=== PATIENT | male | born 1945 | race Caucasian/White ===

== ENCOUNTER 2016-11-20 06:59 | Outpatient (CLI) | payer MEDICARE, OTHER ==
[~2016-11-20] VITALS: Ht 167.6 cm; Wt 70.3 kg
[2016-11-20] VITALS (10 sets, daily range): BP systolic 116–161; BP diastolic 59–73
[2016-11-20 07:30] LABS: BASO % 0 % (0-3); EOS % 1 % (0-3); HEMATOCRIT 25.4 % (39.0-53.0); HEMOGLOBIN 8.3 g/dL (13.0-17.5); LYMPH # 0.3 x10^3/uL (1.0-4.8); LYMPH % 7 % (24-48); MEAN CORPUSCULAR HEMOGLOBIN 36 pg (25-35); MEAN CORPUSCULAR HGB CONC 33 g/dL (31-37); MEAN CORPUSCULAR VOLUME 111 fL (79-100); MONO % 10 % (0-9); NEUT % 83 % (31-73); PLATELET COUNT 149 x10^3/uL (140-400); RED BLOOD COUNT 2.28 x10^6/uL (4.30-5.70); RED CELL DISTRIBUTION WIDTH 16.2 % (11.5-14.5)
[2016-11-20] MEDS ORDERED: AMLO10TA2 PO (07:40)
[2016-11-20] MEDS ORDERED: TACR0.5C2 PO (07:40)
[2016-11-20] MEDS ORDERED: ACYC200C PO (07:40)
[2016-11-20] MEDS ORDERED: MV,C1TAB27 PO (07:40)
[2016-11-20] MEDS ORDERED: AZAT50TA PO (07:40)
[2016-11-20] MEDS ORDERED: AZIT500T PO (07:40)
[2016-11-20] MEDS ORDERED: LEVO100T5 PO (07:40)
[2016-11-20] MEDS ORDERED: CARV6.252 PO (07:40)
[2016-11-20] MEDS ORDERED: PANT40TA5 PO (07:40)
[2016-11-20] MEDS ORDERED: TRAZ50TA15 PO (07:40)
[2016-11-20] MEDS ORDERED: ATOR20TA58 PO (07:40)
[2016-11-20] MEDS ORDERED: BENA20TA2 PO (07:40)
[2016-11-20] MEDS ORDERED: FLUO40CA2 PO (07:40)
[2016-11-20] MEDS ORDERED: CALC1TAB75 PO (07:40)
[2016-11-20] MEDS ORDERED: SULF1TAB3 PO (07:40)
[2016-11-20] MEDS ORDERED: CLON1TAB3 PO (07:40)
[2016-11-20] MEDS ORDERED: ASPI81TA2 PO (07:40)
[2016-11-20] MEDS ORDERED: TORS10TA3 PO (07:40)
[2016-11-20] MEDS ORDERED: TERA2CAP3 PO (07:40)
[2016-11-20] MEDS ORDERED: PRED-220 PO (07:40)
[2016-11-20 07:55] LABS: INR 0.9 (0.8-1.1); PROTHROMBIN TIME PATIENT 11.4 SEC (11.7-14.0)
[2016-11-20] MEDS ORDERED: LIDOCAINE 1% / SOD BICARB 8.4% 20 ML VIAL. IJ ONE ×2 (08:02→09:00)
[2016-11-20] MEDS ORDERED: MIDAZOLAM HCL/PF 5 MG/5 ML VIAL. ONE (08:39)
[2016-11-20] MEDS ORDERED: FENTANYL PF 250 MCG/5 ML VIAL. ONE (08:39)
[2016-11-20] MEDS ORDERED: MIDAZOLAM HCL/PF 5 MG/5 ML VIAL. IV ONE (09:00)
[2016-11-20] MEDS ORDERED: FENTANYL PF 250 MCG/5 ML VIAL. IV ONE (09:00)
--- NOTE | 2016-11-20 09:18 | PDOC ---
MODERATE SEDATION ASSESSMENT RISKS/ALTERNATIVES Risks/Alternatives Risks and alternatives of this type of sedation and procedure discussed with: RISK/ALTERNATIVES: Patient H & P ON CHART H & P H & P on chart and reviewed for co-morbid conditions and appropriate labs. H&P ON CHART: Yes STATUS PREG STATUS ASSESSED: N/A MEDS/ALLERGIES REVIEWED Meds/Allergies Reviewed Medications and Allergies including time and route of recently administered narcotics and sedatives. MEDS/ALLERGIES REVIEWED: Yes ASA RATING ASA RATING: II AIRWAY ASSESSMENT Airway Assessment Airway patency, oral function limitations, presence of caps, crowns, dentures, partials, and ability to extend neck assessed. AIRWAY ASSESSMENT: Yes MALLAMPATI SCORE MALLAMPATI SCORE: II PRE-SEDATION ASSESSMENT PRE-SEDATION ASSESSMENT: Yes RYAN BOLAÑOS MD Nov 20, 2016 09:18
--- NOTE | 2016-11-20 09:22 | PDOC1 ---
History and Physical Date of Procedure Date of Admission 11/20/[address] guided bone marrow asp/bx Indication Indication 71 YO male with MDS, anemia, and elevated free light chains---CT guided bone marrow asp/bx requested by heme-onc. Past Medical History Past Medical History See Nursing Pre procedure PMH Past Surgical History Past Surgical History See Nursing Pre Procedure PSH Current Medications Current Medications Current Medications Lidocaine/Sodium Bicarbonate (Buffered Lidocaine 1%) 20 ml STK-MED ONCE IJ ; Start 11/20/16 at 08:02; Stop 11/20/16 at 08:03; Status DC Midazolam HCl (Versed) 5 mg STK-MED ONCE .ROUTE ; Start 11/20/16 at 08:39; Stop 11/20/16 at 08:40; Status DC Fentanyl Citrate (Fentanyl 5ml Vial) 250 mcg STK-MED ONCE .ROUTE ; Start at 08:39; Stop 11/20/16 at 08:40; Status DC Lidocaine/Sodium Bicarbonate (Buffered Lidocaine 1%) 20 ml 1X ONCE IJ Last administered on 11/20/16 09:07; Start 11/20/16 at 09:00; Stop 11/20/16 at 09:01 ; Status DC Midazolam HCl (Versed) 5 mg 1X ONCE IV Last administered on 11/20/16 09:08; Start 11/20/16 at 09:00; Stop 11/20/16 at 09:01; Status DC Fentanyl Citrate (Fentanyl 5ml Vial) 250 mcg 1X ONCE IV Last administered on 09:08; Start 11/20/16 at 09:00; Stop 11/20/16 at 09:01; Status DC Active Scripts Active Reported Complete Multi Tablet (Mv,Ca,Min/Iron Fum/Fa/Lyco/Lut) 1 Each Tablet 1 Each PO DAILY Calcium 600 + Vit D 200 Tablet (Calcium Carbonate/Vitamin D3) 1 Each Tablet 2 Each PO DAILY Aspirin 81 Mg Tab.chew 1 Tab PO HS Sulfamethoxazole-Tmp Ds Tablet (Sulfamethoxazole/Trimethoprim) 1 Each Tablet 1 Tab PO 3X/WEEK pt takes M-- Trazodone Hcl 50 Mg Tablet 1 Tab PO QHS Terazosin Hcl 2 Mg Capsule 1 Cap PO QHS Tacrolimus 0.5 Mg Capsule 0.5 Mg PO BID Prednisone 10 Mg Tablet 10 Mg PO DAILY Pantoprazole Sodium 40 Mg Tablet.dr 1 Tab PO DAILY Levothyroxine Sodium 100 Mcg Tablet 1 Tab PO DAILY Torsemide 10 Mg Tablet 10 Mg PO DAILY Fluoxetine Hcl 40 Mg Capsule 1 Cap PO DAILYWBKFT Carvedilol 6.25 Mg Tablet 1 Tab PO BID Clonazepam 1 Mg Tablet 1 Tab PO QHS Benazepril Hcl 20 Mg Tablet 1 Tab PO DAILY Zithromax (Azithromycin) 500 Mg Tablet 1 Tab PO 3X/WEEK takes on -- Azathioprine 50 Mg Tablet 3 PO HS Atorvastatin Calcium 20 Mg Tablet 1 Tab PO DAILY Amlodipine Besylate 10 Mg Tablet 10 Mg PO DAILY Acyclovir 200 Mg Capsule 1 Cap PO BID Allergies Allergies: Coded Allergies: rosuvastatin (Verified Adverse Reaction, Intermediate, severe joint pain, 11/20/16) Physical Exam Vital Signs Vital Signs Date Time Temp Pulse Resp B/P Pulse Ox O2 Delivery O2 Flow Rate FiO2 11/20/16 09:08 11 99 Nasal Cannula 2.0 11/20/16 09:05 60 11/20/16 08:05 149/73 11/20/16 08:02 98.0 98.0 Lungs: Clear to auscultation Heart: Regular rate Psych/Mental Status: Mental status NL Assessment Assessment 71 YO male with anemia, MDS, elevated free light chains. Problems: Plan Plan CT guided bone marrow asp/bx, as requested by heme-onc. RYAN BOLAÑOS MD Nov 20, 2016 09:22
--- NOTE | 2016-11-20 09:25 | PDOC ---
Exam Meter Reader Chief Meter Reader Chief Sonam Pre-Procedure Diagnosis Pre-Procedure Diagnosis 71 YO male with MDS, anemia, and elevated free light chains Post-Procedure Diagnosis Post-Procedure Diagnosis Same Procedure Performed Procedure Performed CT guided bone marrow asp/bx Type of Anesthesia Type of Anesthesia Local + mod sedation Estimated Blood Loss EBL: Minimal Specimens Specimans 6 cc bone marrow aspirate + 1 11G core bx-----to heme-path Condition of Patient Condition of Patient Stable. No apparent complication. Disposition Disposition Home from [facility] post recovery, if no problems. F/u with Dr Lantigua. Full report to follow. RYAN BOLAÑOS MD Nov 20, 2016 09:25
[2016-11-20 10:47] LABS: PLT ESTIMATE ADEQUATE (ADEQUATE)
[2016-11-20 10:49] LABS: MICROCYTOSIS MOD; TEAR DROP CELLS OCC
--- NOTE | 2016-11-21 14:26 | RAD ---
CT-guided power drill assisted bone marrow aspiration and biopsy Indication: 71-year-old male with MDS, anemia, and elevated free light chains. CT-guided bone marrow aspirate/biopsy has been requested by hematology-oncology. Anesthesia: 18 minutes moderate sedation was provided utilizing a total of 3 mg Versed and 150 mcg fentanyl, IV. The patient was appropriately monitored by a qualified independent observer throughout the time of moderate sedation. Procedure: Informed consent was obtained from the patient. He was placed prone on the CT scanner. Preliminary noncontrast CT images were obtained through pelvis. A left posterior skin site suitable for CT-guided bone marrow aspirate/biopsy from posterior left iliac bone was selected and marked. That area was prepped and draped in the usual sterile fashion. Conscious sedation was provided with IV Versed and fentanyl. Using aseptic technique, local anesthesia, and CT guidance, and the [employer] power driver sales, successful percutaneous entry was achieved through posterior cortex of left iliac bone. Approximately 6 cc of bone marrow was promptly aspirated, and was submitted to hematology personnel in the CT suite. Using CT guidance, the [email or web address] power driver sales was then utilized to obtain a single, 11-gauge core biopsy sample from marrow cavity of left iliac bone. Touch preparations were made from the core biopsy sample, which was then submitted to pathology in formalin. A sterile dressing was applied over the biopsy skin puncture site. Patient tolerated the procedure well without apparent complication. Impression: Successful, uneventful CT-guided bone marrow aspirate and biopsy, utilizing the [employer] power driver sales biopsy system, as described. PQRS compliance statement: One or more of the following individualized dose reduction techniques were utilized for this CT procedure: 1. Automated exposure control. 2. Adjustment of MA and/or KV according to patient size. 3. Iterative reconstruction technique.
== END 2016-11-20 10:45 | disposition home or self-care (01) ==
LOC: INTRAD 06:59
PROVIDERS: ATTEND Internal Medicine Hematology & Oncology
DX: D46.9 Myelodysplastic syndrome, unspecified (principal); E78.00 Pure hypercholesterolemia, unspecified; I10 Essential (primary) hypertension; K21.9 Gastro-esophageal reflux disease without esophagitis; M19.90 Unspecified osteoarthritis, unspecified site; E11.9 Type 2 diabetes mellitus without complications; F41.9 Anxiety disorder, unspecified; F32.9 Major depressive disorder, single episode, unspecified; E03.9 Hypothyroidism, unspecified; Z96.612 Presence of left artificial shoulder joint; Z96.652 Presence of left artificial knee joint
CPT/HCPCS: 36415; 38221; 77012; 85007; 85027; 85610; 88184; 88185; 88237; G0364; J2250; J3010